=== PATIENT | female | born 1990 | race Caucasian/White ===

== ENCOUNTER 2016-12-30 19:40 | Emergency (ER) | payer MEDICAID ==
[~2016-12-30] VITALS: Ht 160 cm; Wt 52.2 kg
[~2016-12-30 19:40] MED LIST: PREN-96 PO
[2016-12-30 20:04] VITALS: BP 111/66
[2016-12-30 20:30] LABS: Urine Bilirubin Negative (Negative); Urine Color Yellow (Yellow); Urine Glucose Normal (Normal); Urine Ketone Negative (Negative); Urine Nitrite Negative (Negative); Urine RBC 191 /hpf (0 - 4); Urine Squamous Epithelial Cell FEW /hpf (<5); Urine Urobilinogen Normal (Negative)
[2016-12-30 20:31] LABS: Urine Blood 2+ /uL (Negative)
== END 2016-12-30 22:21 | disposition home or self-care (01) ==
LOC: ER 19:45
DX: N39.0 Urinary tract infection, site not specified (principal); Z79.899 Other long term (current) drug therapy
CPT/HCPCS: 81001; 81025

== ENCOUNTER 2017-01-29 15:18 | Emergency (ER) | payer MEDICAID ==
[~2017-01-29] VITALS: Ht 157.5 cm; Wt 46.9 kg
[2017-01-29 16:38] VITALS: BP 102/55
== END 2017-01-29 16:48 | disposition home or self-care (01) ==
LOC: ER 15:22
DX: J02.9 Acute pharyngitis, unspecified (principal)

== ENCOUNTER 2017-02-13 15:15 | Emergency (ER) | payer MEDICAID ==
[~2017-02-13] VITALS: Ht 160 cm; Wt 46.7 kg
[2017-02-13 15:37] VITALS: BP 109/68
== END 2017-02-13 16:39 | disposition home or self-care (01) ==
LOC: ER 15:22
DX: R51 Headache (principal); V49.9XXA Car occupant (driver) (passenger) injured in unspecified traffic accident, initial encounter; Y93.89 Activity, other specified; Y99.8 Other external cause status; Y92.89 Other specified places as the place of occurrence of the external cause